=== PATIENT | male | born 1955 | race Hispanic/Latino ===

== ENCOUNTER 2024-12-05 14:13 | Emergency (ER) | payer MEDICARE ==
[~2024-12-05] VITALS: Ht 165.1 cm; Wt 77.1 kg
[~2024-12-05 14:13] MED LIST: ATOR10TA69 PO; CIPR-279 PO; FENO160T16 PO; FURO20TA4 PO; INS7030 SQ
[2024-12-05 14:14] VITALS: BP 157/73; PULSE 65; RESP 16; TEMP 97.8
[2024-12-05 14:57] LABS: IMMATURE GRANULOCYTE ABSOLUTE 0.01 K/uL (0-1); NUCLEATED RED BLOOD CELLS 0.0 % (0.0-0.19); PLATELET COUNT (AUTO) 100 K/uL (130-400); RED BLOOD CELL COUNT(AUTO) 2.83 MIL/uL (4.50-6.20); RED CELL DISTRIBUTION WIDTH 14.2 % (11.0-15.5); WHITE BLOOD COUNT (AUTO) 4.6 K/uL (4.8-10.8)
--- NOTE | 2024-12-05 15:00 | NUR ---
PT TRANSPORTED TO IR VIA WHEELCHAIR FOR PARACENTESIS ACCOMPANIED BY SCOOBY TAHPA
[2024-12-05 15:11] LABS: CREATININE 1.3 mg/dL (0.5-1.3); GLOMERULAR FILTR. RATE CALC 59.0 mL/min (>90); GLUCOSE,RANDOM 194.0 mg/dL (70-105); INR 1.09 (0.85-1.15); SODIUM SERUM 140.0 mmol/L (136-145); UREA NITROGEN, BLOOD 36.0 mg/dL (7-18)
[2024-12-05 15:15] LABS: ASPARTATE AMINOTRANSFERASE 45.0 U/L (10-37); TOTAL PROTEIN, SERUM 5.6 g/dL (6.0-8.3)
--- NOTE | 2024-12-05 16:30 | NUR ---
U/S GD PARACENTESIS PROCEDURE PERFORMED BY DR Katiuska PHILLIPS. PUNCTURE SITE LLQ AND PATIENT TOLERATED PROCEDURE WELL. TOTAL REMOVED 9.1 LITERS OF CLOUDY YELLOW FLUID. END OF PROCEDURE AT 1615. CATHETER REMOVED AND DRESSING APPLIED. NO BLEEDING NOTED. REPORT GIVEN TO Carmen BAEZA RN AND PATIENT TRANSPORTED TO ED FAST TRACK. AAO X3 WITH NO C/O PAIN. ALBUMIN 25% 50 GRAMS IV GIVEN DURING PROCEDURE
[2024-12-05] MEDS: ALBUMIN HUMAN 25% 200 ML IV ONE (16:33)
--- NOTE | 2024-12-05 17:00 | NUR ---
PT RETURNED FROM IR, 9.1L REMOVED FROM ABDOMEN LLQ, 50G ALBUMIN ADM, V/S BP140/57;HR 60;SAT 98%
--- NOTE | 2024-12-05 17:02 | ERN ---
ED Note History of Present Illness Stated Complaint: PARACENTESIS Chief Complaint: Abdominal Pain Time Seen by MD: 14:18 Dictation: 68-year-old male presenting to the emergency department with diffuse abdominal distention from cirrhosis here for paracentesis has not had one for a few weeks no fever no chest pain however he does feel winded if he tries to exert himself Allergies: Coded Allergies: No Known Drug Allergies (Unverified Allergy, Unknown, 09/27/23) Home Meds Active Scripts Ciprofloxacin HCl (Cipro) 250 Mg Tablet, 1 TAB PO BID for 7 Days, #14 TAB 0 Refills Prov:REBECCA GARCIA MD 11/22/24 Reported Medications Hum Insulin NPH/Reg Insulin Hm (Humulin 70/30) 100 Unit/Ml (70-30) Inj, 20 UNIT SQ BID, ML 09/28/23 Fenofibrate (Fenofibrate) 160 Mg Tablet, 160 MG PO DAILY, TAB 09/28/23 Furosemide (Furosemide) 20 Mg Tablet, 20 MG PO DAILY, TAB 09/28/23 Atorvastatin Calcium (Atorvastatin Calcium) 10 Mg Tablet, 10 MG PO HS, TAB 09/28/23 Past Medical History Past Medical History: Hypertension, Other Additional Past Medical Hx: LIVER CIRHOSIS Surgical History: Other Surgical History Other: SHOULDER SX Review of System Dictation Constitutional: Negative for fever,chills, and weight loss Eyes: Negative for injury, pain,redness, and discharge ENT: Negative for injury,pain or swelling Cardiovascular: Negative for chest pain, palpitations, and edema Respiratory: Negative for shortness of breath, cough, and wheezing, Abdomen/GI: Per HPI : Negative for injury, bleeding and discharge MS/Extremity: Negative for injury and deformity Skin: Negative for rash, and discoloration Neuro: Per H Initial Vital Sign VS Vital Signs Date Time Temp Pulse Resp B/P (MAP) Pulse Ox O2 Delivery O2 Flow Rate FiO2 12/05/24 14:14 97.9 65 16 157/73 100 Room Air 0 Physical Exam Dictation General: awake, alert, appears chronically ill Head/Face: Normocephalic, atraumatic Eyes: PERRL, EOMI, vision at baseline ENT: oral cavity clear, TMs clear, no signs of infection Neck: Trachea midline, supple, no nuchal rigidity Cardiovascular: RRR, normal S1/S2, No MRGs, no JVD Respiratory: CTAB, no respiratory distress, No rales or wheezes Abdomen: Soft, non-tender diffuse distention, normal bowel sounds, no guarding or rebound. Skin: Warm, dry, normal turgor, no rash MS/Extremity: Pulses equal, no cyanosis, neurovascular intact, FROM Neuro: COAx4, GCS 15, strength 5/5, CN 2-12 intact, normal cerebellar exam, normal gait, Psych: Normal behavior, mood, and affect normal Results (Laboratory/Radiology) Laboratory/Radiology Laboratory Tests Test 12/05/24 14:50 White Blood Count 4.6 K/uL (4.8-10.8) L Red Blood Count 2.83 MIL/uL (4.50-6.20) L Hemoglobin 8.9 g/dL (14.0-18.0) L Hematocrit 26.2 % (42-54) L Mean Corpuscular Volume 92.6 fL (79-99) Mean Corpuscular Hemoglobin 31.4 pg (27.0-33.0) Mean Corpuscular Hemoglobin Concent 34.0 g/dL (32.0-36.0) Red Cell Distribution Width 14.2 % (11.0-15.5) Platelet Count 100 K/uL (130-400) L Mean Platelet Volume 9.8 fL (7.5-10.5) Immature Granulocyte % (Auto) 0.2 % (0-1) Neutrophils (%) (Auto) 60.5 % (40.0-77.0) Lymphocytes (%) (Auto) 25.7 % (21.0-51.0) Monocytes (%) (Auto) 6.5 % (3.0-13.0) Eosinophils (%) (Auto) 6.7 % (0.0-8.0) Basophils (%) (Auto) 0.4 % (0.0-5.0) Neutrophils # (Auto) 2.8 K/uL (1.8-7.7) Lymphocytes # (Auto) 1.2 K/uL (1.0-4.8) Monocytes # (Auto) 0.3 K/uL (0.1-1.0) Eosinophils # (Auto) 0.31 K/uL (0.00-0.70) Basophils # (Auto) 0.02 K/uL (0.00-0.20) Absolute Immature Granulocyte (auto 0.01 K/uL (0-1) Nucleated Red Blood Cells 0.0 % (0.0-0.19) Prothrombin Time 11.5 SEC (9.6-11.6) Prothromb Time International Ratio 1.09 (0.85-1.15) Activated Partial Thromboplast Time 31.8 SEC (26.3-35.5) Sodium Level 140 mmol/L (136-145) Potassium Level 4.6 mmol/L (3.5-5.1) Chloride Level 111 mmol/L (101-111) Carbon Dioxide Level 24 mmol/L (21-32) Blood Urea Nitrogen 36 mg/dL (7-18) H Creatinine 1.3 mg/dL (0.5-1.3) Glomerular Filtration Rate Calc 59 mL/min (>90) Random Glucose 194 mg/dL (70-105) H Total Calcium 8.0 mg/dL (8.5-10.1) L Total Bilirubin 0.9 mg/dL (0.2-1.0) Direct Bilirubin 0.3 mg/dL (0.0-0.3) Aspartate Amino Transf (AST/SGOT) 45 U/L (10-37) H Alanine Aminotransferase (ALT/SGPT) 35 U/L (12-78) Alkaline Phosphatase 256 U/L (50-136) H Troponin I High Sensitivity 12 ng/L (4-75) B-Type Natriuretic Peptide 344 pg/mL (0-100) H Total Protein 5.6 g/dL (6.0-8.3) L Albumin 2.2 g/dL (3.5-5.0) L Labs Reviewed?: Yes ED Course ED Course Orders Procedure Category Date Status Time B-Type Natriuretic LAB 12/05/24 Complete Peptide 14:25 12 Lead Ekg Tracing- EKG 12/05/24 Logged Technical 14:25 Basic Metabolic Panel LAB 12/05/24 Complete 14:25 Cbc With Differential LAB 12/05/24 Complete 14:25 Hepatic Function Panel LAB 12/05/24 Complete 14:25 Pt And Ptt LAB 12/05/24 Complete 14:25 Troponin I High LAB 12/05/24 Complete Sensitivity 14:25 Us Abdominal US 12/05/24 Taken Paracentesis Ir 15:00 Albumin Human 25% PHA 12/05/24 Complete (Albutein) 15:55 Current Medications Medications (Trade) Dose Ordered Sig/Dylan Route PRN Reason Start Time Stop Time Status Last Admin Dose Admin Albumin Human 200 ml @ As Directed STK-MED ONCE IV 12/05/24 15:55 12/05/24 15:55 DC 12/05/24 16:33 Vital Signs Date Time Temp Pulse Resp B/P (MAP) Pulse Ox O2 Delivery O2 Flow Rate FiO2 12/05/24 14:14 97.9 65 16 157/73 100 Room Air 0 Medical Decision Making MDM MDM: Differential diagnosis: Rationale: Tests considered and ordered secondary to shared decision making include: Previous outside records reviewed: Old ER visits. Risk of complication and/or morbidity or mortality of patient management: None Medications-Per medication reconciliation Need for hospitalization: Patient does not meet criteria for hospitalization. Need for emergency major/minor surgery: No There are no social concerns with this patient. Prescription drug management Prescriptions will include symptomatic care Patient's prior external medical records from other ER visits were reviewed by me as indicated. Prior testing and results from previous visits were reviewed. Prior tests were taken into account with medical decision making and resource utilization, independent historian/historians were used to obtain complete medical history. I independently interpreted the test that were performed, results were reviewed by me and considered findings on radiology if ordered. Medical management and examination interpretation discussions were had by me wi th other qualified healthcare professionals as indicated for the patient's care. 68-year-old male presenting to the emergency department for abdominal ascites, stable vital signs, patient was taken to IR for paracentesis albumin was given returned back to the emergency department vital signs stable no acute distress stable for discharge. DX & DISP Disposition: Discharge Departure Impression: Primary Impression: Status post abdominal paracentesis Additional Impression: Abdominal ascites Condition: Stable Referrals: EDISON ENGLISH MD (PCP) DALIA SWARTZ MD Dec 05, 2024 17:02
--- NOTE | 2024-12-06 06:45 | EKG ---
[facility] Test Date: 2024-12-05 Test Time: 15:06:37 Pat Name: RUBIN DAMON Department: [facility] Room: Gender: M Cnc Cutting Operator: gliberto : 1955 Requested By: DALIA SWARTZ Order Number: [id number] Reading MD: Joye Wang Measurements Intervals [place] Rate: 68 P: 0 IN: 134 QRS: 59 QRSD: 90 T: -22 QT: 399 QTc: 423 Interpretive Statements Sinus rhythm Lateral infarct, age indeterminate Compared to ECG 09/28/2023 10:07:26 Sinus bradycardia no longer present Myocardial infarct finding still present Electronically Signed On 12-06-2024 09:53:54 CDT by Joey Wang Please click the below link to view image of tracing.
--- NOTE | 2024-12-23 16:19 | HMCIMG ---
US ABDOMINAL PARACENTESIS IR REASON: ASCITES TECHNIQUE: Paracentesis was performed with ultrasound guidance. The puncture site was selected in the Left lower quadrant and overlying skin prepped and draped in a sterile fashion. 1% Xylocaine infiltration was performed. Catheter was placed in the fluid using trocar technique. 9.1 L were removed. Fluid sample was submitted for laboratory evaluation. The patient showed no evidence of complication during the procedure. Patient tolerated procedure well IMPRESSION: 1. Ultrasound-guided paracentesis.
== END 2024-12-05 17:24 | disposition home or self-care (01) ==
LOC: EDH 14:13
DX: R18.8 Other ascites (principal); I10 Essential (primary) hypertension; I21.9 Acute myocardial infarction, unspecified; Z79.899 Other long term (current) drug therapy
CPT/HCPCS: 99285; 80076; 84484; 80048; 83880; 85025; 85610; 85730; 36415; 49083; 96365; 93005; P9046; C1729

== ENCOUNTER 2024-12-16 12:22 | Emergency (ER) | payer MEDICARE ==
[~2024-12-16] VITALS: Ht 167.6 cm; Wt 81.6 kg
--- NOTE | 2024-12-16 12:48 | EKG ---
[facility] Test Date: 2024-12-16 Test Time: 12:44:11 Pat Name: RUBIN DAMON Department: [facility] Room: Gender: M Value Analyst: [id number] : 1955 Requested By: DALIA SWARTZ Order Number: [id number] Reading MD: Yuan Suazo Measurements Intervals [place] Rate: 62 P: -3 GA: 185 QRS: 66 QRSD: 88 T: -1 QT: 420 QTc: 426 Interpretive Statements Sinus rhythm Compared to ECG 12/05/2024 15:06:37 Myocardial infarct finding no longer present Electronically Signed On 12-18-2024 21:37:45 CDT by Yuan Suazo Please click the below link to view image of tracing.
[2024-12-16 12:56] VITALS: BP 157/69; PULSE 62; RESP 13; TEMP 97.7; O2SAT 100
[2024-12-16 13:05] LABS: IMMATURE GRANULOCYTE ABSOLUTE 0.01 K/uL (0-1); NUCLEATED RED BLOOD CELLS 0.0 % (0.0-0.19); PLATELET COUNT (AUTO) 113 K/uL (130-400); RED BLOOD CELL COUNT(AUTO) 2.82 MIL/uL (4.50-6.20); RED CELL DISTRIBUTION WIDTH 14.6 % (11.0-15.5); WHITE BLOOD COUNT (AUTO) 3.8 K/uL (4.8-10.8)
--- NOTE | 2024-12-16 13:08 | HMCIMG ---
CHEST 1VW REASON: sob COMPARISON: Prior study from 10/10/2024 is available. FINDINGS: Single view of the chest was obtained. Lungs are clear. Heart size is normal. There is no pulmonary vascular congestion. Mediastinum and bony thorax appear unremarkable. There is right shoulder hemiarthroplasty with the humeral heads sublux cephalad. This was seen before and appears to be unchanged. There is osteopenia of the osseous structure. IMPRESSION: 1. No acute cardiopulmonary process 2. 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 This is unchanged from prior study.
[2024-12-16 13:11] LABS: CREATININE 1.2 mg/dL (0.5-1.3); GLOMERULAR FILTR. RATE CALC 65.0 mL/min (>90); GLUCOSE,RANDOM 159.0 mg/dL (70-105); SODIUM SERUM 141.0 mmol/L (136-145); UREA NITROGEN, BLOOD 30.0 mg/dL (7-18)
[2024-12-16 13:15] LABS: ASPARTATE AMINOTRANSFERASE 54.0 U/L (10-37); TOTAL PROTEIN, SERUM 5.3 g/dL (6.0-8.3)
[2024-12-16 13:19] LABS: INR 1.08 (0.85-1.15)
--- NOTE | 2024-12-16 13:35 | ERN ---
ED Note History of Present Illness Stated Complaint: HERE FOR PARACENTESIS Chief Complaint: Abdominal Pain Time Seen by MD: 12:26 Dictation: 68-year-old male presenting to the emergency department with worsening abdominal ascites gets paracentesis for therapeutic relief reports abdomen has been swelling more currently not having any fever abdominal pain or shortness of breath Allergies: Coded Allergies: No Known Drug Allergies (Unverified Allergy, Unknown, 09/27/23) Home Meds Active Scripts Ciprofloxacin HCl (Cipro) 250 Mg Tablet, 1 TAB PO BID for 7 Days, #14 TAB 0 Refills Prov:REBECCA GARCIA MD 11/22/24 Reported Medications Hum Insulin NPH/Reg Insulin Hm (Humulin 70/30) 100 Unit/Ml (70-30) Inj, 20 UNIT SQ BID, ML 09/28/23 Fenofibrate (Fenofibrate) 160 Mg Tablet, 160 MG PO DAILY, TAB 09/28/23 Furosemide (Furosemide) 20 Mg Tablet, 20 MG PO DAILY, TAB 09/28/23 Atorvastatin Calcium (Atorvastatin Calcium) 10 Mg Tablet, 10 MG PO HS, TAB 09/28/23 Past Medical History Past Medical History: Hypertension, Liver Disease, Other Additional Past Medical Hx: LIVER CIRHOSIS Surgical History: Other Surgical History Other: SHOULDER SX Review of System Dictation Constitutional: Negative for fever,chills, and weight loss Eyes: Negative for injury, pain,redness, and discharge ENT: Negative for injury,pain or swelling Cardiovascular: Negative for chest pain, palpitations, and edema Respiratory: Negative for shortness of breath, cough, and wheezing, Abdomen/GI: Per HPI : Negative for injury, bleeding and discharge MS/Extremity: Negative for injury and deformity Skin: Negative for rash, and discoloration Neuro: Negative for headache, weakness, numbness, tingling, and seizure Psych: Negative for suicide ideation, homicidal ideation, and hallucinations Initial Vital Sign VS Vital Signs Date Time Temp Pulse Resp B/P (MAP) Pulse Ox O2 Delivery O2 Flow Rate FiO2 12/16/24 12:23 97.9 71 16 142/65 100 Room Air 0 12/16/24 12:56 21 Physical Exam Dictation General: awake, alert, NAD Head/Face: Normocephalic, atraumatic Eyes: PERRL, EOMI, vision at baseline ENT: oral cavity clear, TMs clear, no signs of infection Neck: Trachea midline, supple, no nuchal rigidity Cardiovascular: RRR, normal S1/S2, No MRGs, no JVD Respiratory: CTAB, no respiratory distress, No rales or wheezes Abdomen: Soft, non-tender, moderately distended normal bowel sounds, no guarding or rebound. Skin: Warm, dry, normal turgor, no rash MS/Extremity: Pulses equal, no cyanosis, neurovascular intact, FROM Neuro: COAx4, GCS 15, strength 5/5, CN 2-12 intact, normal cerebellar exam, normal gait, Psych: Normal behavior, mood, and affect normal Results (Laboratory/Radiology) Laboratory/Radiology Laboratory Tests Test 12/16/24 12:43 White Blood Count 3.8 K/uL (4.8-10.8) L Red Blood Count 2.82 MIL/uL (4.50-6.20) L Hemoglobin 9.0 g/dL (14.0-18.0) L Hematocrit 26.7 % (42-54) L Mean Corpuscular Volume 94.7 fL (79-99) Mean Corpuscular Hemoglobin 31.9 pg (27.0-33.0) Mean Corpuscular Hemoglobin Concent 33.7 g/dL (32.0-36.0) Red Cell Distribution Width 14.6 % (11.0-15.5) Platelet Count 113 K/uL (130-400) L Mean Platelet Volume 10.1 fL (7.5-10.5) Immature Granulocyte % (Auto) 0.3 % (0-1) Neutrophils (%) (Auto) 57.9 % (40.0-77.0) Lymphocytes (%) (Auto) 26.5 % (21.0-51.0) Monocytes (%) (Auto) 6.6 % (3.0-13.0) Eosinophils (%) (Auto) 8.2 % (0.0-8.0) H Basophils (%) (Auto) 0.5 % (0.0-5.0) Neutrophils # (Auto) 2.2 K/uL (1.8-7.7) Lymphocytes # (Auto) 1.0 K/uL (1.0-4.8) Monocytes # (Auto) 0.3 K/uL (0.1-1.0) Eosinophils # (Auto) 0.31 K/uL (0.00-0.70) Basophils # (Auto) 0.02 K/uL (0.00-0.20) Absolute Immature Granulocyte (auto 0.01 K/uL (0-1) Nucleated Red Blood Cells 0.0 % (0.0-0.19) Prothrombin Time 11.4 SEC (9.6-11.6) Prothromb Time International Ratio 1.08 (0.85-1.15) Activated Partial Thromboplast Time 30.6 SEC (26.3-35.5) Sodium Level 141 mmol/L (136-145) Potassium Level 4.6 mmol/L (3.5-5.1) Chloride Level 110 mmol/L (101-111) Carbon Dioxide Level 25 mmol/L (21-32) Blood Urea Nitrogen 30 mg/dL (7-18) H Creatinine 1.2 mg/dL (0.5-1.3) Glomerular Filtration Rate Calc 65 mL/min (>90) Random Glucose 159 mg/dL (70-105) H Total Calcium 8.2 mg/dL (8.5-10.1) L Total Bilirubin 1.3 mg/dL (0.2-1.0) H Direct Bilirubin 0.5 mg/dL (0.0-0.3) H Aspartate Amino Transf (AST/SGOT) 54 U/L (10-37) H Alanine Aminotransferase (ALT/SGPT) 41 U/L (12-78) Alkaline Phosphatase 254 U/L (50-136) H Troponin I High Sensitivity 13 ng/L (4-75) Total Protein 5.3 g/dL (6.0-8.3) L Albumin 2.1 g/dL (3.5-5.0) L Lipase 30 U/L (16-77) Labs Reviewed?: Yes EKG Comment: Heart rate 62 normal sinus rhythm normal intervals no STEMI ED Course ED Course Orders Procedure Category Date Status Time 12 Lead Ekg Tracing- EKG 12/16/24 Complete Technical 12:31 Basic Metabolic Panel LAB 12/16/24 Complete 12:31 Cbc With Differential LAB 12/16/24 Complete 12:31 Hepatic Function Panel LAB 12/16/24 Complete 12:31 Lipase LAB 12/16/24 Complete 12:31 Pt And Ptt LAB 12/16/24 Complete 12:31 Troponin I High LAB 12/16/24 Complete Sensitivity 12:31 Chest 1vw RAD 12/16/24 Resulted 12:31 Vital Signs Date Time Temp Pulse Resp B/P (MAP) Pulse Ox O2 Delivery O2 Flow Rate FiO2 12/16/24 12:56 97.7 62 13 157/69 100 Room Air* 0 21 12/16/24 12:23 97.9 71 16 142/65 100 Room Air 0 Medical Decision Making MDM MDM: Differential diagnosis: Rationale: Tests considered and ordered secondary to shared decision making include: Previous outside records reviewed: Old ER visits. Risk of complication and/or morbidity or mortality of patient management: None Medications-Per medication reconciliation Need for hospitalization: Patient does not meet criteria for hospitalization. Need for emergency major/minor surgery: No There are no social concerns with this patient. Prescription drug management Prescriptions will include symptomatic care Patient's prior external medical records from other ER visits were reviewed by me as indicated. Prior testing and results from previous visits were reviewed. Prior tests were taken into account with medical decision making and resource utilization, independent historian/historians were used to obtain complete medical history. I independently interpreted the test that were performed, results were reviewed by me and considered findings on radiology if ordered. Medical management and examination interpretation discussions were had by me with other qualified healthcare professionals as indicated for the patient's care. 68-year-old male with abdominal with ascites stable exam vital signs stable workup stable no signs of spontaneous bacterial peritonitis, patient is oxygenating well no interventional radiology services are available today patient is stable for discharge. And advised to follow up as needed. DX & DISP Disposition: Discharge Departure Impression: Primary Impression: Abdominal ascites Condition: Stable Referrals: EDISON ENGLISH MD (PCP) DALIA SWARTZ MD Dec 16, 2024 13:35
--- NOTE | 2024-12-16 15:06 | NUR ---
DC PATIENT WAS DC'D BY DR SWARTZ, I EXPLAINED TO PATIENT TO FOLLOW UP WITH PCP, PROVIDED INFO BASED ON DIAGNOSIS, AND ANSWERED ANY FOLLOW UP QUESTIONS, I ALSO MADE SURE FOR PATIENT TO UNDERSTAND [facility] WHEELCHAIRED PATIENT OUT OF ED, NO COMPLICATIONS
== END 2024-12-16 15:00 | disposition home or self-care (01) ==
LOC: EDH 12:22
DX: R18.8 Other ascites (principal); I10 Essential (primary) hypertension; Z79.01 Long term (current) use of anticoagulants; Z79.899 Other long term (current) drug therapy; Z98.890 Other specified postprocedural states
CPT/HCPCS: 36415; 71045; 80048; 80076; 83690; 84484; 85025; 85610; 85730; 93005; 99285

== ENCOUNTER 2024-12-20 08:56 | Emergency (ER) | payer MEDICARE ==
[~2024-12-20] VITALS: Ht 157.5 cm; Wt 81.8 kg
--- NOTE | 2024-12-20 09:07 | ERN ---
General Chief Complaint: Other Problems Stated Complaint: ASCITES Time Seen by MD: 08:58 History of Present Illness Initial Comments 69M presents for paracentesis. Patient has hx of cirrhosis w/ ascites, requiring paracentesis. He came yesterday late in the afternoon and IR had left. He returns this morning for the procedure. No fevers, severe pain, or other concerning symptom. Allergies: Coded Allergies: No Known Drug Allergies (Unverified Allergy, Unknown, 09/27/23) Home Meds Active Scripts Ciprofloxacin HCl (Cipro) 250 Mg Tablet, 1 TAB PO BID for 7 Days, #14 TAB 0 Refills Prov:REBECCA GARCIA MD 11/22/24 Reported Medications Hum Insulin NPH/Reg Insulin Hm (Humulin 70/30) 100 Unit/Ml (70-30) Inj, 20 UNIT SQ BID, ML 09/28/23 Fenofibrate (Fenofibrate) 160 Mg Tablet, 160 MG PO DAILY, TAB 09/28/23 Furosemide (Furosemide) 20 Mg Tablet, 20 MG PO DAILY, TAB 09/28/23 Atorvastatin Calcium (Atorvastatin Calcium) 10 Mg Tablet, 10 MG PO HS, TAB 09/28/23 Past Medical History Past Medical History: Hypertension, Liver Disease, Other Medical History Other: LIVER CIRHOSIS Past Surgical History: Other Surgical History Other: SHOULDER SX ROS Dictation CONSTITUTIONAL: No chills, no fever, no weakness, no diaphoresis, no malaise. HEAD/FACE: No signs of trauma. EENT: No eye pain, no blurred vision, no tearing, no double vision, no ear pain, no ear discharge, no nose pain, no nasal congestion, no throat pain, no throat swelling, no mouth pain. RESPIRATORY: No cough, no orthopnea, no SOB, no stridor, no wheezing. CARDIOVASCULAR: No chest pain, no edema, no palpitations, no syncope. GASTROINTESTINAL/ABDOMINAL: Abdominal pain and distention GENITOURINARY: No abnormal discharge, no dysuria, no frequent urination, no hematuria. No complaints of pain in the genitals. MUSCULOSKELETAL: No back pain, no gout, no joint pain, no joint swelling, no muscle pain, no muscle stiffness, no neck pain. INTEGUMENTARY: No change in color, no change in hair/nails, no dryness, no lesion, no lumps, no rash. NEUROLOGICAL/PSYCH: No anxiety, not depressed, no emotional problem, no headache, no numbness, no pre-existing deficit, no history of seizures, no tremors, no weakness. HEMATOLOGIC/LYMPHATIC: Not anemic, no history of blood clots, no apparent bleeding, no bruising, glands not swollen. All Systems Negative, Except as Noted. Physical Exam Physical Exam Dictation VITAL SIGNS: Reviewed. GENERAL APPEARANCE: Alert, oriented x3, no acute distress HEAD AND FACE: Non-traumatic. EYES: PERRL, pink conjunctivas, eyelid no trauma, anterior chamber clear. EARS: Pinnas intact and no signs of trauma or erythema. Ear canals clear and no discharge. TMs no erythema. NOSE: No discharge, no bleeding. OROPHARYNX: Mouth normal, teeth no caries, tongue pink. Pharynx clear, no erythema. Tonsils no exudates, no abscesses noted. Mucous membrane moist. NECK: Supple, non-tender, no thyromegaly, no masses, no JVD, no bruits. BREAST: Deferred. CHEST: No tenderness, no crepitus, no paradoxical movement, no retractions. LUNGS: Clear, well-ventilated, symmetric, no rales, no wheezing, no rhonchi, no stridor, good breath sounds bilaterally. HEART: Regular rate, regular rhythm, no murmur, no gallops. VASCULAR: No peripheral edema. ABDOMEN: Abdominal distention RECTAL: Deferred. GENITAL: Deferred. NEUROLOGICAL: Normal speech, gross motor function intact, gross sensory function intact. MUSCULOSKELETAL: Neck nontender, full range of motion, back nontender, full range of motion. EXTREMITIES: Nontender, full range of motion. SKIN: Color pink, dry, no turgor, no rash, no lacerations, no abrasions, no contusions. LYMPHATICS: Deferred. MDM CC: abdominal distension Historian: patient Comorbidities: Ascites due to liver cirrhosis Limitations: None Differential diagnosis: Ascites, SBP, other Clinically patient has a distended abdomen. No respiratory distress. Very low suspicion for SBP since he has no systemic symptoms or pain. I consulted IR who performed a paracentesis. Patient returned to the ER. He has stable vital signs and he feels much better. We will DC. ED Course Orders Procedure Category Date Status Time Albumin Human 25% PHA 12/20/24 Complete (Albutein) 09:18 Us Abdominal US 12/20/24 Resulted Paracentesis Ir 10:00 Current Medications Medications (Trade) Dose Ordered Sig/Dylan Route PRN Reason Start Time Stop Time Status Last Admin Dose Admin Albumin Human 200 ml @ As Directed STK-MED ONCE IV 12/20/24 09:18 12/20/24 09:18 DC 12/20/24 09:54 Vital Signs Date Time Temp Pulse Resp B/P (MAP) Pulse Ox O2 Delivery O2 Flow Rate FiO2 12/20/24 12:58 98.8 77 14 137/58 98 Room Air* 0 21 12/20/24 12:12 98.2 70 12 136/64 98 Room Air* 0 21 12/20/24 11:27 97.5 81 18 143/63 100 Room Air* 0 21 12/20/24 08:57 98.1 75 20 158/75 98 Room Air DX & DISP Disposition: Discharge Departure Impression: Primary Impression: Abdominal ascites Additional Impressions: Liver cirrhosis, Status post abdominal paracentesis Condition: Stable Additional Instructions: You had a paracentesis performed today. Please follow up with your primary doctor. Paracentesis can be coordinated as an outpatient. If you are unable to coordinate an outpatient paracentesis, please return to the emergency department. Please return to the emergency department if you have any concerning symptoms. Referrals: EDISON ENGLISH MD (PCP) BETO VERGARA DO Dec 20, 2024 09:07
--- NOTE | 2024-12-20 09:17 | NUR ---
PT TAKEN TO IR FOR PARACENTESIS AT THIS TIME. ACCOMPANIED BY NURSE ELIER
[2024-12-20] MEDS: ALBUMIN HUMAN 25% 200 ML IV ONE (09:54)
--- NOTE | 2024-12-20 10:50 | NUR ---
ULTRASOUND GUIDED PARACENTESIS PROCEDURE PERFORMED BY DR. JUNIE PHILLIPS. PUNCTURE SITE LLQ AND PATIENT TOLERATED PROCEDURE WELL. TOTAL REMOVED 12.3 LITERS OF CLOUDY, YELLOW ASCITES FLUID. ALBUMIN 25% 50 GRAMS IV GIVEN DURING PROCEDURE. END OF PROCEDURE AT 1040. CATHETER REMOVED AND DRESSING APPLIED- NO BLEEDING NOTED. REPORT GIVEN TO MARLEE PURCELL RN AND PATIENT TRANSPORTED BACK TO ED-20 VIA STRETCHER. AAO X3 WITH NO C/O PAIN.
--- NOTE | 2024-12-20 11:40 | NUR ---
1120 PT BACK FROM RAD DEPT/ PT AAOX4 NO C/O PAIN VITALS WNL DRESSING TO LLQ DRY AND INTACT. PT HAD 12.3 LITERS REMOVED. LOCAL ANESTHETIC/ ALBULMIN GIVEN IN RAD. DEPT REPORT GIVEN BY BERRY ALMODOVAR.
[2024-12-20 12:58] VITALS: BP 137/58; PULSE 77; RESP 14; TEMP 98.8; O2SAT 98
--- NOTE | 2024-12-20 13:02 | NUR ---
PT AAOX4 STABLE NO DISTRESS VITALS WNL NO C/O PAIN NOW. PT LLQ DRESSING D/I , IV REMOVED CATHETER INTACT, PT DRESSED HIMSELF, PT GIVEN INSTRUCTIONS FOR HOME, PT STATES HE WILL DRIVE HIMSELF HOME.
--- NOTE | 2024-12-20 15:51 | HMCIMG ---
US ABDOMINAL PARACENTESIS IR REASON: ASCITES TECHNIQUE: Paracentesis was performed with ultrasound guidance. The puncture site was selected in the left lobe: and overlying skin prepped and draped in a sterile fashion. 1% Xylocaine infiltration was performed. Catheter was placed in the fluid using trocar technique. 12.3 L were removed. Fluid sample was submitted for laboratory evaluation. The patient showed no evidence of complication during the procedure. Patient tolerated procedure well. IMPRESSION: 1. Ultrasound-guided paracentesis.
== END 2024-12-20 13:07 | disposition home or self-care (01) ==
LOC: EDH 08:56
DX: R18.8 Other ascites (principal); I10 Essential (primary) hypertension; Z79.899 Other long term (current) drug therapy
CPT/HCPCS: 49083; 99285; 96365; P9046; C1729

== ENCOUNTER 2025-01-09 11:25 | Emergency (ER) | payer MEDICARE ==
[~2025-01-09] VITALS: Ht 165.1 cm; Wt 81.8 kg
[2025-01-09 12:01] LABS: IMMATURE GRANULOCYTE ABSOLUTE 0.01 K/uL (0-1); NUCLEATED RED BLOOD CELLS 0.0 % (0.0-0.19); PLATELET COUNT (AUTO) 102 K/uL (130-400); RED BLOOD CELL COUNT(AUTO) 2.60 MIL/uL (4.50-6.20); RED CELL DISTRIBUTION WIDTH 14.2 % (11.0-15.5); WHITE BLOOD COUNT (AUTO) 4.6 K/uL (4.8-10.8)
[2025-01-09 12:14] LABS: CREATININE 1.2 mg/dL (0.5-1.3); GLOMERULAR FILTR. RATE CALC 65.0 mL/min (>90); GLUCOSE,RANDOM 86.0 mg/dL (70-105); SODIUM SERUM 142.0 mmol/L (136-145); UREA NITROGEN, BLOOD 36.0 mg/dL (7-18)
[2025-01-09 12:18] LABS: ASPARTATE AMINOTRANSFERASE 43.0 U/L (10-37); TOTAL PROTEIN, SERUM 5.5 g/dL (6.0-8.3)
[2025-01-09 12:52] LABS: INR 1.08 (0.85-1.15)
--- NOTE | 2025-01-09 13:58 | ERN ---
General Chief Complaint: Abdominal Pain Stated Complaint: PARACENTESIS Time Seen by MD: 11:27 Time Seen by Midlevel: 11:27 Source: patient History of Present Illness Initial Comments 69-year-old male presents to the emergency department due to abdominal pain and distention. The patient reports he needs a paracentesis, last one done 20 days ago. Denies any nausea, vomiting, shortness of breath, chest pain or further associated symptoms. PMHx cirrhosis, HTN Allergies: Coded Allergies: No Known Drug Allergies (Unverified Allergy, Unknown, 09/27/23) Home Meds Active Scripts Ciprofloxacin HCl (Cipro) 250 Mg Tablet, 1 TAB PO BID for 7 Days, #14 TAB 0 Refills Prov:REBECCA GARCIA MD 11/22/24 Reported Medications Hum Insulin NPH/Reg Insulin Hm (Humulin 70/30) 100 Unit/Ml (70-30) Inj, 20 UNIT SQ BID, ML 09/28/23 Fenofibrate (Fenofibrate) 160 Mg Tablet, 160 MG PO DAILY, TAB 09/28/23 Furosemide (Furosemide) 20 Mg Tablet, 20 MG PO DAILY, TAB 09/28/23 Atorvastatin Calcium (Atorvastatin Calcium) 10 Mg Tablet, 10 MG PO HS, TAB 09/28/23 Past Medical History Past Medical History: Hypertension, Liver Disease, Other Medical History Other: LIVER CIRHOSIS Past Surgical History: Other Surgical History Other: SHOULDER SX ROS Dictation Constitutional: Negative for fever,chills, and weight loss Eyes: Negative for injury, pain,redness, and discharge ENT: Negative for injury,pain or swelling Cardiovascular: Negative for chest pain, palpitations, and edema Respiratory: Negative for shortness of breath, cough, and wheezing, Abdomen/GI: Positive for abdominal pain, distention Negative for nausea, vomiting, diarrhea, and constipation Back: Negative for injury and pain : Negative for painful urination, bleeding or discharge MS/Extremity: Negative for injury and deformity Skin: Negative for rash, and discoloration Neuro: Negative for headache, weakness, numbness, tingling, and seizure Psych: Negative for suicide ideation, homicidal ideation, and hallucinations Physical Exam Physical Exam Dictation General: awake, alert, no acute distress Head/Face: Normocephalic, atraumatic Eyes: PERRL, EOMI, normal conjunctiva ENT: oral cavity clear, oral mucosa moist Neck: Supple, normal range of motion Cardiovascular: RRR, normal S1/S2 Respiratory: CTAB, no respiratory distress, no rales or wheezes Abdomen: Abdominal distention, no guarding or rebound. Skin: Warm, dry, normal turgor, no rash MS/Extremity: Pulses equal, no cyanosis, neurovascular intact, FROM Neuro: COAx4, GCS 15, strength 5/5, CN 2-12 intact, normal cerebellar exam, normal gait Psych: Normal behavior, mood, and affect normal Results Laboratory and Microbiology Lab and Micro Result Laboratory Tests Test 01/09/25 11:53 White Blood Count 4.6 K/uL (4.8-10.8) L Red Blood Count 2.60 MIL/uL (4.50-6.20) L Hemoglobin 8.4 g/dL (14.0-18.0) L Hematocrit 24.9 % (42-54) L Mean Corpuscular Volume 95.8 fL (79-99) Mean Corpuscular Hemoglobin 32.3 pg (27.0-33.0) Mean Corpuscular Hemoglobin Concent 33.7 g/dL (32.0-36.0) Red Cell Distribution Width 14.2 % (11.0-15.5) Platelet Count 102 K/uL (130-400) L Mean Platelet Volume 9.5 fL (7.5-10.5) Immature Granulocyte % (Auto) 0.2 % (0-1) Neutrophils (%) (Auto) 55.6 % (40.0-77.0) Lymphocytes (%) (Auto) 29.8 % (21.0-51.0) Monocytes (%) (Auto) 7.2 % (3.0-13.0) Eosinophils (%) (Auto) 6.8 % (0.0-8.0) Basophils (%) (Auto) 0.4 % (0.0-5.0) Neutrophils # (Auto) 2.6 K/uL (1.8-7.7) Lymphocytes # (Auto) 1.4 K/uL (1.0-4.8) Monocytes # (Auto) 0.3 K/uL (0.1-1.0) Eosinophils # (Auto) 0.31 K/uL (0.00-0.70) Basophils # (Auto) 0.02 K/uL (0.00-0.20) Absolute Immature Granulocyte (auto 0.01 K/uL (0-1) Nucleated Red Blood Cells 0.0 % (0.0-0.19) Prothrombin Time 11.4 SEC (9.6-11.6) Prothromb Time International Ratio 1.08 (0.85-1.15) Activated Partial Thromboplast Time 31.3 SEC (26.3-35.5) Sodium Level 142 mmol/L (136-145) Potassium Level 4.7 mmol/L (3.5-5.1) Chloride Level 113 mmol/L (101-111) H Carbon Dioxide Level 21 mmol/L (21-32) Blood Urea Nitrogen 36 mg/dL (7-18) H Creatinine 1.2 mg/dL (0.5-1.3) Glomerular Filtration Rate Calc 65 mL/min (>90) Random Glucose 86 mg/dL (70-105) Total Calcium 7.8 mg/dL (8.5-10.1) L Total Bilirubin 1.1 mg/dL (0.2-1.0) H Direct Bilirubin 0.4 mg/dL (0.0-0.3) H Aspartate Amino Transf (AST/SGOT) 43 U/L (10-37) H Alanine Aminotransferase (ALT/SGPT) 28 U/L (12-78) Alkaline Phosphatase 229 U/L (50-136) H Total Protein 5.5 g/dL (6.0-8.3) L Albumin 2.3 g/dL (3.5-5.0) L Lipase 34 U/L (16-77) Labs Reviewed?: Yes MDM MDM: Differential diagnosis: Cirrhosis, abdominal ascites, bacterial peritonitis Rationale: 69-year-old male presents to the emergency department due to abdominal pain and distention. The patient reports he needs a paracentesis, last one done 20 days ago. Denies any nausea, vomiting, shortness of breath, chest pain or further associated symptoms. PMHx cirrhosis, HTN Labs obtained indicate leukopenia 4.6, anemia with hemoglobin of 8.4 and hematocrit of 24.9. PT and PTT within normal limits. LFTs obtained elevated consistent with cirrhosis. Patient taking by IR for paracentesis, albumin administered. Patient remained stable post paracentesis in the ED, symptoms resolved. Advised to follow up with PCP. Return to the emergency department for any worsening symptoms. Patient verbalized understanding. Patient stable for discharge. There are no social concerns with this patient. I independently interpreted the test that were performed, results were reviewed by me and considered findings on radiology if ordered. Medical management and examination interpretation discussions were had by me with other qualified healthcare professionals as indicated for the patient's care. ED Course Orders Procedure Category Date Status Time Cbc With Differential LAB 01/09/25 Complete 11:31 Basic Metabolic Panel LAB 01/09/25 Complete 11:31 Urinalysis LAB 01/09/25 Logged W/Microscopic 11:31 Hepatic Function Panel LAB 01/09/25 Complete 11:31 Lipase LAB 01/09/25 Complete 11:31 Pt And Ptt LAB 01/09/25 Complete 12:30 Us Abdominal US 01/09/25 Taken Paracentesis Ir 12:30 Obtain Consent For: CPOE 01/09/25 Transmitted 12:30 Albumin Human 25% PHA 01/09/25 Complete (Albutein) 13:36 Current Medications Medications (Trade) Dose Ordered Sig/Dylan Route PRN Reason Start Time Stop Time Status Last Admin Dose Admin Albumin Human 200 ml @ As Directed STK-MED ONCE IV 01/09/25 13:36 01/09/25 13:36 DC 01/09/25 14:48 Vital Signs Date Time Temp Pulse Resp B/P (MAP) Pulse Ox O2 Delivery O2 Flow Rate FiO2 01/09/25 12:30 97.5 59 16 162/65 100 Room Air* 0 21 01/09/25 11:27 97.5 59 16 162/65 100 Room Air 0 DX & DISP Disposition: Discharge Departure Impression: Primary Impression: Status post abdominal paracentesis Additional Impressions: Liver cirrhosis, Abdominal ascites Condition: Stable Additional Instructions: Discharge home. Rest. Follow up with primary care in 24 hours. Return to the ER for any acute changes or worsening symptoms. If any medications were prescribed take as directed. Okay to continue home medications unless otherwise discussed during your visit in the emergency room today. Patient was also advised to follow-up with primary care physician in 1 to 2 days for continued monitoring. Referrals: EDISON ENGLISH MD (PCP) I performed the substantive portion of the visit. I have reviewed and personally made and approve the management plan that is documented in the notes by myself or the MARY. I acknowledge full responsibility for the patient's management plan. LADONNA RODRIGUEZ PAC Jan 09, 2025 13:58
[2025-01-09] MEDS: ALBUMIN HUMAN 25% 200 ML IV ONE (14:48)
--- NOTE | 2025-01-09 15:00 | NUR ---
U/S GD PARACENTESIS PROCEDURE PERFORMED BY DR Katiuska PHILLIPS. PUNCTURE SITE LLQ AND PATIENT TOLERATED PROCEDURE WELL. TOTAL REMOVED 12.5 LITERS OF CLOUDY YELLOW FLUID. END OF PROCEDURE AT 1440. CATHETER REMOVED AND DRESSING APPLIED. NO BLEEDING NOTED. REPORT GIVEN TO SCOOBY CALDERON AND PATIENT TRANSPORTED TO ED 3 VIA STRETCHER AT 1500. AAO X3 WITH NO C/O PAIN. ALBUMIN 25% 50 GRAMS IV GIVEN DURING PROCEDURE.
[2025-01-09 17:12] VITALS: BP 148/62; PULSE 60; RESP 16; TEMP 97.5; O2SAT 100
--- NOTE | 2025-01-12 13:18 | HMCIMG ---
US ABDOMINAL PARACENTESIS IR REASON: ASCITIES TECHNIQUE: Paracentesis was performed with ultrasound guidance. The puncture site was selected in the Left lower quadrant and overlying skin prepped and draped in a sterile fashion. 1% Xylocaine infiltration was performed. Catheter was placed in the fluid using trocar technique. 12.5 L were removed. Fluid sample was submitted for laboratory evaluation. The patient showed no evidence of complication during the procedure. Patient tolerated procedure well. IMPRESSION: 1. Ultrasound-guided paracentesis.
[2025-03-01] MEDS ORDERED: FURO40TA5 PO (11:49)
[2025-03-10] MEDS ORDERED: FOLI0.8T53 PO (08:21)
[2025-03-10] MEDS ORDERED: LACT20PA7 PO (08:21)
[2025-03-10] MEDS ORDERED: RIFA550T PO (08:21)
== END 2025-01-09 17:15 | disposition home or self-care (01) ==
LOC: EDH 11:25
DX: R18.8 Other ascites (principal); K74.60 Unspecified cirrhosis of liver; I10 Essential (primary) hypertension; Z79.899 Other long term (current) drug therapy
CPT/HCPCS: 99285; 80076; 80048; 83690; 85025; 85610; 85730; 36415; 49083; 96365; P9046; C1729

== ENCOUNTER 2025-01-24 11:37 | Emergency (ER) | payer MEDICARE ==
[~2025-01-24] VITALS: Ht 165.1 cm; Wt 79.8 kg
[2025-01-24 12:33] LABS: IMMATURE GRANULOCYTE ABSOLUTE 0.01 K/uL (0-1); NUCLEATED RED BLOOD CELLS 0.0 % (0.0-0.19); PLATELET COUNT (AUTO) 134 K/uL (130-400); RED BLOOD CELL COUNT(AUTO) 2.99 MIL/uL (4.50-6.20); RED CELL DISTRIBUTION WIDTH 13.7 % (11.0-15.5); WHITE BLOOD COUNT (AUTO) 6.4 K/uL (4.8-10.8)
[2025-01-24 12:40] LABS: CREATININE 1.3 mg/dL (0.5-1.3); GLOMERULAR FILTR. RATE CALC 59.0 mL/min (>90); GLUCOSE,RANDOM 89.0 mg/dL (70-105); SODIUM SERUM 142.0 mmol/L (136-145); UREA NITROGEN, BLOOD 36.0 mg/dL (7-18)
[2025-01-24 12:43] LABS: INR 1.06 (0.85-1.15)
--- NOTE | 2025-01-24 14:25 | HMCIMG ---
EXAM: CT Abdomen and Pelvis Without IV contrast CLINICAL HISTORY: ascites TECHNIQUE: Axial computed tomography images of the abdomen and pelvis without intravenous contrast. CONTRAST: No IV contrast. COMPARISON: Compared with the [facility] dated 10/07 FINDINGS: LUNG BASES: The lung bases appear clear. Right mild and left minimal pleural effusion. LIVER: Cirrhotic appearance with hypertrophy of the left lobe of the liver. GALLBLADDER AND BILE DUCTS: Possible cholelithiasis with pneumobilia. No biliary ductal dilatation is evident. PANCREAS: Unremarkable. SPLEEN: The spleen is enlarged in size, measuring 15 cm. ADRENAL GLANDS: Unremarkable. KIDNEYS, URETERS, AND BLADDER: The kidneys appear within normal limits. There is no hydronephrosis or hydroureter. No urinary calculi are seen. Diffuse urinary bladder wall thickening with maximum thickness of 7.7 mm. STOMACH AND BOWEL: Unremarkable appearance of the stomach and bowel. No evidence of bowel obstruction. No evidence suggesting enteritis or colitis. APPENDIX: No evidence of acute appendicitis on CT examination. PERITONEUM: Severe free fluid. No free air. LYMPH NODES: No lymphadenopathy is evident. REPRODUCTIVE: Prostate is enlarged in size measuring 3.7 x 4.7 x 5.8 cm (52 cc). VASCULATURE: No evidence of abdominal aortic aneurysm. Dilated collateral vessels in the medial aspect of the spleen and adjacent to the left adrenal gland. BONES: No aggressive appearing osseous lesion. No acute osseous pathology evident. Mild multilevel degenerative changes in the visualized spine. Diffuse abdominal and scrotal wall edema. IMPRESSION: 1. Severe ascites. 2. Cirrhosis with left lobe hypertrophy and splenomegaly measuring 15 cm. 3. Right mild and left minimal pleural effusion. 4. Diffuse urinary bladder wall thickening, could represent cystitis or muscular hypertrophy. 5. Dilated collateral vessels in the medial aspect of the spleen and adjacent to the left adrenal gland. 6. Enlarged prostate. /Bivalve
[2025-01-24] MEDS: ALBUMIN HUMAN 25% 200 ML IV ONE (16:37)
--- NOTE | 2025-01-24 16:49 | NUR ---
12 L REMOVED FROM LLQ, PT WAS GIVEN 200MLS OF ALBUMIN PER CRYSTAL RN.
--- NOTE | 2025-01-24 16:50 | NUR ---
ULTRASOUND GUIDED PARACENTESIS PROCEDURE PERFORMED BY DR. JUNIE PHILLIPS. PUNCTURE SITE LLQ AND PATIENT TOLERATED PROCEDURE WELL. TOTAL REMOVED 12.0 LITERS OF CLEAR, YELLOW ASCITES FLUID. ALBUMIN 25% ADMINISTERED ORDERED. END OF PROCEDURE AT 1635. CATHETER REMOVED AND DRESSING APPLIED. REPORT CALLED TO Jose ANN RN IN ED. PATIENT TRANSFERRED BACK TO ED IN STABLE CONDITION WITH NO C/O PAIN.
--- NOTE | 2025-01-24 17:13 | ERN ---
General Chief Complaint: Abdominal Pain Stated Complaint: ABD PAIN Time Seen by MD: 12:05 Time Seen by Midlevel: 12:05 Source: patient History of Present Illness Initial Comments Year old male with a past medical history of liver cirrhosis presents to the emergency department for evaluation of ascites. Patient reports monthly paracentesis and believes he may need a paracentesis performed today. He reports significant amount of abdominal distention. Denies any shortness of breath or any other symptoms at this time. Allergies: Coded Allergies: No Known Drug Allergies (Unverified Allergy, Unknown, 09/27/23) Home Meds Active Scripts Ciprofloxacin HCl (Cipro) 250 Mg Tablet, 1 TAB PO BID for 7 Days, #14 TAB 0 Refills Prov:REBECCA GARCIA MD 11/22/24 Reported Medications Hum Insulin NPH/Reg Insulin Hm (Humulin 70/30) 100 Unit/Ml (70-30) Inj, 20 UNIT SQ BID, ML 09/28/23 Fenofibrate (Fenofibrate) 160 Mg Tablet, 160 MG PO DAILY, TAB 09/28/23 Furosemide (Furosemide) 20 Mg Tablet, 20 MG PO DAILY, TAB 09/28/23 Atorvastatin Calcium (Atorvastatin Calcium) 10 Mg Tablet, 10 MG PO HS, TAB 09/28/23 Past Medical History Past Medical History: Hypertension, Liver Disease, Other Medical History Other: LIVER CIRHOSIS Past Surgical History: Other, None Surgical History Other: SHOULDER SX ROS Dictation CONSTITUTIONAL: Negative except for HPI HEAD/FACE: Negative except for HPI EENT: Negative except for HPI RESPIRATORY: Negative except for HPI GASTROINTESTINAL/ABDOMINAL: Negative except for HPI GENITOURINARY: Negative except for HPI MUSCULOSKELETAL: Negative except for HPI INTEGUMENTARY: Negative except for HPI NEUROLOGICAL/PSYCH: Negative except for HPI HEMATOLOGIC/LYMPHATIC: Negative except for HPI All Systems Negative, Except as noted above. 13 point review of systems assessed and all negative except for above. Physical Exam Physical Exam Dictation Vital Signs reviewed General Appearance: Alert, oriented x 3, no acute distress, well developed, nourished. Head and Face: non-traumatic. Eyes: PERRL, pink conjunctivas, eyelid no trauma, anterior chamber with arcus senilis. Ears: Pinnas intact and no signs of trauma or erythema ear canals clear and no discharge TM no erythema Nose: No discharge, no bleeding. Oropharynx: Mouth normal, tongue pink, pharynx clear,no erythema, tonsils no exudates, no abscesses noted, mucous membrane moist Neck: Supple, non-tender, no thyromegaly, no masses, no JVD, no bruits Breast:Deferred Chest:No tenderness, no crepitus, no paradoxical movement, no retractions Lungs:Clear, well-ventilated, symmetric, no rales, no wheezing, no rhonchi, no stridor, good breath sounds bilaterally Heart: Regular rate, regular rhythm, no murmur, no gallops Vascular: no peripheral edema, Abdomen: Soft, positive bowel sounds, moderate to severe ascites Rectal: Deferred Genital: Deferred Neurological: Normal speech, motor function intact, sensory function intact Musculoskeletal: Neck nontender, full range of motion, back nontender, full range of motion, Extremities: nontender, full range of motion Skin: Color pink, dry, no turgor, no rash, no lacerations, no abrasions, no contusions. Lymphatic: Deferred Results Laboratory and Microbiology Lab and Micro Result Laboratory Tests Test 01/24/25 12:24 White Blood Count 6.4 K/uL (4.8-10.8) Red Blood Count 2.99 MIL/uL (4.50-6.20) L Hemoglobin 9.6 g/dL (14.0-18.0) L Hematocrit 28.4 % (42-54) L Mean Corpuscular Volume 95.0 fL (79-99) Mean Corpuscular Hemoglobin 32.1 pg (27.0-33.0) Mean Corpuscular Hemoglobin Concent 33.8 g/dL (32.0-36.0) Red Cell Distribution Width 13.7 % (11.0-15.5) Platelet Count 134 K/uL (130-400) Mean Platelet Volume 9.6 fL (7.5-10.5) Immature Granulocyte % (Auto) 0.2 % (0-1) Neutrophils (%) (Auto) 56.6 % (40.0-77.0) Lymphocytes (%) (Auto) 28.3 % (21.0-51.0) Monocytes (%) (Auto) 6.1 % (3.0-13.0) Eosinophils (%) (Auto) 8.5 % (0.0-8.0) H Basophils (%) (Auto) 0.3 % (0.0-5.0) Neutrophils # (Auto) 3.6 K/uL (1.8-7.7) Lymphocytes # (Auto) 1.8 K/uL (1.0-4.8) Monocytes # (Auto) 0.4 K/uL (0.1-1.0) Eosinophils # (Auto) 0.54 K/uL (0.00-0.70) Basophils # (Auto) 0.02 K/uL (0.00-0.20) Absolute Immature Granulocyte (auto 0.01 K/uL (0-1) Nucleated Red Blood Cells 0.0 % (0.0-0.19) Prothrombin Time 11.2 SEC (9.6-11.6) Prothromb Time International Ratio 1.06 (0.85-1.15) Activated Partial Thromboplast Time 28.8 SEC (26.3-35.5) Sodium Level 142 mmol/L (136-145) Potassium Level 4.9 mmol/L (3.5-5.1) Chloride Level 113 mmol/L (101-111) H Carbon Dioxide Level 23 mmol/L (21-32) Blood Urea Nitrogen 36 mg/dL (7-18) H Creatinine 1.3 mg/dL (0.5-1.3) Glomerular Filtration Rate Calc 59 mL/min (>90) Random Glucose 89 mg/dL (70-105) Total Calcium 8.1 mg/dL (8.5-10.1) L Labs Reviewed?: Yes MDM MDM: Year old male with a past medical history of liver cirrhosis presents to the emergency department for evaluation of ascites. Patient reports monthly paracentesis and believes he may need a paracentesis performed today. He reports significant amount of abdominal distention. Denies any shortness of breath or any other symptoms at this time. Basic labs obtained which are stab le. IR consulted and agrees for paracentesis. Patient had paracentesis performed and was observed shortly in the emergency department with no complications. Patient discharged home Differential diagnosis: Fluid overload pulmonary edema, ascites There are no social concerns with this patient. Prescription drug management Prescriptions will include: None Medical management and examination interpretation discussions were had by me with other qualified healthcare professionals as indicated for the patient's care. ED Course Orders Procedure Category Date Status Time Cbc With Differential LAB 01/24/25 Complete 12:15 Basic Metabolic Panel LAB 01/24/25 Complete 12:15 Pt And Ptt LAB 01/24/25 Complete 12:15 Ct Abdomen/Pelvis W/O CT 01/24/25 Resulted Contrast 12:15 Us Abdominal US 01/24/25 Resulted Paracentesis Ir 14:44 Albumin Human 25% PHA 01/24/25 Complete (Albutein) 15:32 Vital Signs Date Time Temp Pulse Resp B/P (MAP) Pulse Ox O2 Delivery O2 Flow Rate FiO2 01/24/25 17:15 98.4 68 18 134/64 98 Room Air* 0 21 01/24/25 14:33 65 18 152/73 100 Room Air* 0 21 01/24/25 12:58 59 18 154/60 100 Room Air* 0 21 01/24/25 11:40 98.2 68 18 141/76 97 DX & DISP Disposition: Discharge Departure Impression: Primary Impression: Abdominal ascites Additional Impression: S/P abdominal paracentesis Condition: Stable Referrals: EDISON ENGLISH MD (PCP) I have reviewed the case, and I agree with, Diagnosis and Plan I performed the substantive portion of the visit. I have reviewed and personally made and approve the management plan that is documented in the note by myself or the MARY. I acknowledge for responsibility for the patient's management plan. [place] ENGL[place] PAC Jan 24, 2025 17:13
[2025-01-24 17:15] VITALS: BP 134/64; PULSE 68; RESP 18; TEMP 98.4; O2SAT 98
--- NOTE | 2025-01-25 09:14 | HMCIMG ---
US ABDOMINAL PARACENTESIS IR REASON: paracentisis Performed by Dr. Anthony Cheatham PGY-[address] Sanchez TECHNIQUE: Paracentesis was performed with ultrasound guidance. The puncture site was selected in the Right lower quadrant and overlying skin prepped and draped in a sterile fashion. 1% Xylocaine infiltration was performed. Catheter was placed in the fluid using trocar technique. 12 were removed. Fluid sample was submitted for laboratory evaluation. The patient showed no evidence of complication during the procedure. Patient tolerated the procedure well IMPRESSION: 1. Ultrasound-guided paracentesis.
== END 2025-01-24 17:20 | disposition home or self-care (01) ==
LOC: EDH 11:37
DX: R18.8 Other ascites (principal); I10 Essential (primary) hypertension; Z79.899 Other long term (current) drug therapy
CPT/HCPCS: 49083; 99285; 74176; 96365; 80048; 85025; 85610; 85730; 36415; P9046; C1729

== ENCOUNTER 2025-02-06 11:20 | Emergency (ER) | payer MEDICARE ==
[~2025-02-06] VITALS: Ht 170.2 cm; Wt 81.6 kg
--- NOTE | 2025-02-06 11:34 | ERN ---
ED Note History of Present Illness Stated Complaint: PARECENTESIS Chief Complaint: Abdominal Pain Time Seen by MD: 11:25 Dictation: PATIENT IS A 69-YEAR-OLD MALE WITH A HISTORY OF KNOWN CIRRHOSIS OF THE LIVER WITH A ASCITES. HE IS HAVING SOME ABDOMINAL DISTENTION WITH MILD SOB FOR THE LAST SEVERAL DAYS, HAS REQUESTING EMERGENT PARACENTESIS. NO FEVER NO CHILLS NO NAUSEA VOMITING. NO CHEST PAIN. PATIENT STATES HE HAS NOT SPOKEN TO HIS PRIMARY CARE DOCTOR REGARDING BEING SCHEDULED OUTPATIENT Allergies: Coded Allergies: No Known Drug Allergies (Unverified Allergy, Unknown, 09/27/23) Home Meds Active Scripts Ciprofloxacin HCl (Cipro) 250 Mg Tablet, 1 TAB PO BID for 7 Days, #14 TAB 0 Refills Prov:REBECCA GARCIA MD 11/22/24 Reported Medications Hum Insulin NPH/Reg Insulin Hm (Humulin 70/30) 100 Unit/Ml (70-30) Inj, 20 UNIT SQ BID, ML 09/28/23 Fenofibrate (Fenofibrate) 160 Mg Tablet, 160 MG PO DAILY, TAB 09/28/23 Furosemide (Furosemide) 20 Mg Tablet, 20 MG PO DAILY, TAB 09/28/23 Atorvastatin Calcium (Atorvastatin Calcium) 10 Mg Tablet, 10 MG PO HS, TAB 09/28/23 Past Medical History Past Medical History: Hypertension, Liver Disease, Other Additional Past Medical Hx: LIVER CIRHOSIS Surgical History: Other, None Surgical History Other: SHOULDER SX RN Note Reviewed/Agreed w/PFSH: Yes Review of System Dictation CONSTITUTIONAL: NEGATIVE EXCEPT FOR HPI HEAD/FACE: NEGATIVE EXCEPT FOR HPI EENT: NEGATIVE EXCEPT FOR HPI RESPIRATORY: NEGATIVE EXCEPT FOR HPI GASTROINTESTINAL/ABDOMINAL: NEGATIVE EXCEPT FOR HPI ABDOMINAL DISTENTION ASCITES GENITOURINARY: NEGATIVE EXCEPT FOR HPI MUSCULOSKELETAL: NEGATIVE EXCEPT FOR HPI INTEGUMENTARY: NEGATIVE EXCEPT FOR HPI NEUROLOGICAL/PSYCH: NEGATIVE EXCEPT FOR HPI HEMATOLOGIC/LYMPHATIC: NEGATIVE EXCEPT FOR HPI ALL SYSTEMS NEGATIVE, EXCEPT NOTED ABOVE. 13 POINT REVIEW OF SYSTEMS ASSESSED AND ALL NEGATIVE EXCEPT FOR ABOVE. Initial Vital Sign VS Vital Signs Date Time Temp Pulse Resp B/P (MAP) Pulse Ox O2 Delivery O2 Flow Rate FiO2 02/06/25 11:22 97.5 65 16 151/66 100 Room Air 0 02/06/25 16:00 21 Physical Exam Dictation VITAL SIGNS REVIEWED GENERAL APPEARANCE: ALERT, ORIENTED X 3, MILD ACUTE DISTRESS, WELL DEVELOPED, NOURISHED. HEAD AND FACE: NON-TRAUMATIC. EYES: PERRL, PINK CONJUNCTIVAS, EYELID NO TRAUMA, ANTERIOR CHAMBER WITH ARCUS SENILIS. EARS: PINNAS INTACT AND NO SIGNS OF TRAUMA OR ERYTHEMA EAR CANALS CLEAR AND NO DISCHARGE TM NO ERYTHEMA NOSE: NO DISCHARGE, NO BLEEDING. OROPHARYNX: MOUTH NORMAL, TONGUE PINK, PHARYNX CLEAR,NO ERYTHEMA, TONSILS NO EXUDATES, NO ABSCESSES NOTED, MUCOUS MEMBRANE MOIST NECK: SUPPLE, NON-TENDER, NO THYROMEGALY, NO MASSES, NO JVD, NO BRUITS BREAST:DEFERRED CHEST:NO TENDERNESS, NO CREPITUS, NO PARADOXICAL MOVEMENT, NO RETRACTIONS LUNGS:CLEAR, WELL-VENTILATED, SYMMETRIC, NO RALES, NO WHEEZING, NO RHONCHI, NO STRIDOR, GOOD BREATH SOUNDS BILATERALLY HEART: REGULAR RATE, REGULAR RHYTHM, NO MURMUR, NO GALLOPS VASCULAR: NO PERIPHERAL EDEMA, ABDOMEN: SOFT, POSITIVE BOWEL SOUNDS, ABDOMEN MILDLY DISTENDED, WITH A ASCITES AND POSITIVE WAVE SIGN. ABDOMEN NOT TENSE RECTAL: DEFERRED GENITAL: DEFERRED NEUROLOGICAL: NORMAL SPEECH, MOTOR FUNCTION INTACT, SENSORY FUNCTION INTACT MUSCULOSKELETAL: NECK NONTENDER, FULL RANGE OF MOTION, BACK NONTENDER, FULL RANGE OF MOTION, EXTREMITIES: NONTENDER, FULL RANGE OF MOTION SKIN: COLOR PINK, DRY, NO TURGOR, NO RASH, NO LACERATIONS, NO ABRASIONS, NO CONTUSIONS. LYMPHATIC: DEFERRED Results (Laboratory/Radiology) Laboratory/Radiology Laboratory Tests Test 02/06/25 11:48 White Blood Count 5.5 K/uL (4.8-10.8) Red Blood Count 3.01 MIL/uL (4.50-6.20) L Hemoglobin 9.6 g/dL (14.0-18.0) L Hematocrit 28.8 % (42-54) L Mean Corpuscular Volume 95.7 fL (79-99) Mean Corpuscular Hemoglobin 31.9 pg (27.0-33.0) Mean Corpuscular Hemoglobin Concent 33.3 g/dL (32.0-36.0) Red Cell Distribution Width 13.8 % (11.0-15.5) Platelet Count 127 K/uL (130-400) L Mean Platelet Volume 9.6 fL (7.5-10.5) Immature Granulocyte % (Auto) 0.4 % (0-1) Neutrophils (%) (Auto) 64.8 % (40.0-77.0) Lymphocytes (%) (Auto) 21.9 % (21.0-51.0) Monocytes (%) (Auto) 6.8 % (3.0-13.0) Eosinophils (%) (Auto) 5.7 % (0.0-8.0) Basophils (%) (Auto) 0.4 % (0.0-5.0) Neutrophils # (Auto) 3.6 K/uL (1.8-7.7) Lymphocytes # (Auto) 1.2 K/uL (1.0-4.8) Monocytes # (Auto) 0.4 K/uL (0.1-1.0) Eosinophils # (Auto) 0.31 K/uL (0.00-0.70) Basophils # (Auto) 0.02 K/uL (0.00-0.20) Absolute Immature Granulocyte (auto 0.02 K/uL (0-1) Nucleated Red Blood Cells 0.0 % (0.0-0.19) Prothrombin Time 10.9 SEC (9.6-11.6) Prothromb Time International Ratio 1.03 (0.85-1.15) Activated Partial Thromboplast Time 29.1 SEC (26.3-35.5) Sodium Level 140 mmol/L (136-145) Potassium Level 4.6 mmol/L (3.5-5.1) Chloride Level 110 mmol/L (101-111) Carbon Dioxide Level 22 mmol/L (21-32) Blood Urea Nitrogen 40 mg/dL (7-18) H Creatinine 1.3 mg/dL (0.5-1.3) Glomerular Filtration Rate Calc 59 mL/min (>90) Random Glucose 87 mg/dL (70-105) Total Calcium 8.2 mg/dL (8.5-10.1) L Total Bilirubin 0.9 mg/dL (0.2-1.0) Aspartate Amino Transf (AST/SGOT) 44 U/L (10-37) H Alanine Aminotransferase (ALT/SGPT) 28 U/L (12-78) Alkaline Phosphatase 194 U/L (50-136) H Ammonia 20 umol/L (11-32) Total Protein 5.8 g/dL (6.0-8.3) L Albumin 2.5 g/dL (3.5-5.0) L Labs Reviewed?: Yes ED Course ED Course Orders Procedure Category Date Status Time Ammonia LAB 02/06/25 Complete 11:32 Pt And Ptt LAB 02/06/25 Complete 11:32 Cbc With Differential LAB 02/06/25 Complete 11:32 Comprehensive LAB 02/06/25 Complete Metabolic Panel 11:32 Us Abdominal US 02/06/25 Taken Paracentesis Ir 14:37 Albumin Human 25% PHA 02/06/25 Complete (Albutein) 14:53 Current Medications Medications (Trade) Dose Ordered Sig/Dylan Route PRN Reason Start Time Stop Time Status Last Admin Dose Admin Albumin Human 200 ml @ As Directed STK-MED ONCE IV 02/06/25 14:53 02/06/25 14:53 DC 02/06/25 16:31 Vital Signs Date Time Temp Pulse Resp B/P (MAP) Pulse Ox O2 Delivery O2 Flow Rate FiO2 02/06/25 16:00 97.5 72 20 137/68 97 Room Air* 0 21 02/06/25 11:22 97.5 65 16 151/66 100 Room Air 0 1740/PATIENT DISCHARGED HOME RETURN TO THE EMERGENCY ROOM IN THE MORNING AT 07:00 FOR PARACENTESIS. Medical Decision Making MDM MDM: DIFFERENTIAL DIAGNOSIS: ELECTROLYTE IMBALANCE/DEHYDRATION/HYPERAMMONEMIA/ ABDOMINAL DISTENTION/ANEMIA RATIONALE: TESTS CONSIDERED AND ORDERED SECONDARY TO SHARED DECISION MAKING INCLUDE: LABS PREVIOUS OUTSIDE RECORDS REVIEWED: OLD ER VISITS. RISK OF COMPLICATION AND/OR MORBIDITY OR MORTALITY OF PATIENT MANAGEMENT: NONE MEDICATIONS-PER MEDICATION RECONCILIATION NEED FOR HOSPITALIZATION: PATIENT DOES NOT MEET CRITERIA FOR HOSPITALIZATION. NONE NEED FOR EMERGENCY MAJOR/MINOR SURGERY: NO THERE ARE NO SOCIAL CONCERNS WITH THIS PATIENT. PRESCRIPTION DRUG MANAGEMENT PATIENT WILL BE INSTRUCTED TO RETURN TO THE EMERGENCY ROOM IN THE MORNING FOR PARACENTESIS PRESCRIPTIONS WILL INCLUDE SYMPTOMATIC CARE PATIENT'S PRIOR EXTERNAL MEDICAL RECORDS FROM OTHER ER VISITS WERE REVIEWED BY ME INDICATED. PRIOR TESTING AND RESULTS FROM PREVIOUS VISITS WERE REVIEWED. PRIOR TESTS WERE TAKEN INTO ACCOUNT WITH MEDICAL DECISION MAKING AND RESOURCE UTILIZATION, INDEPENDENT HISTORIAN/HISTORIANS WERE USED TO OBTAIN COMPLETE MEDICAL HISTORY. I INDEPENDENTLY INTERPRETED THE TEST THAT WERE PERFORMED, RESULTS WERE REVIEWED BY ME AND CONSIDERED FINDINGS ON RADIOLOGY IF ORDERED. MEDICAL MANAGEMENT AND EXAMINATION INTERPRETATION DISCUSSIONS WERE HAD BY ME WITH OTHER QUALIFIED HEALTHCARE PROFESSIONALS INDICATED FOR THE PATIENT'S CARE. DX & DISP Disposition: Discharge Departure Impression: Primary Impression: Abdominal ascites Additional Impressions: Liver cirrhosis, Elevated LFTs, Stage 3a chronic kidney disease, Hypoalbuminemia Condition: Stable Referrals: EDISON ENGLISH MD (PCP) Time of Disposition: 17:41 I have reviewed the case, and I agree with, Diagnosis and Plan DEWAYNE MENDOSA TUBE FILLER Feb 06, 2025 11:34
[2025-02-06 12:05] LABS: IMMATURE GRANULOCYTE ABSOLUTE 0.02 K/uL (0-1); NUCLEATED RED BLOOD CELLS 0.0 % (0.0-0.19); PLATELET COUNT (AUTO) 127 K/uL (130-400); RED BLOOD CELL COUNT(AUTO) 3.01 MIL/uL (4.50-6.20); RED CELL DISTRIBUTION WIDTH 13.8 % (11.0-15.5); WHITE BLOOD COUNT (AUTO) 5.5 K/uL (4.8-10.8)
[2025-02-06 12:13] LABS: CREATININE 1.3 mg/dL (0.5-1.3); GLOMERULAR FILTR. RATE CALC 59.0 mL/min (>90); GLUCOSE,RANDOM 87.0 mg/dL (70-105); SODIUM SERUM 140.0 mmol/L (136-145); UREA NITROGEN, BLOOD 40.0 mg/dL (7-18)
[2025-02-06 12:18] LABS: ASPARTATE AMINOTRANSFERASE 44.0 U/L (10-37); TOTAL PROTEIN, SERUM 5.8 g/dL (6.0-8.3)
[2025-02-06 12:19] LABS: INR 1.03 (0.85-1.15)
--- NOTE | 2025-02-06 15:00 | NUR ---
PT LEFT TO IR AT THIS TIME
--- NOTE | 2025-02-06 16:15 | NUR ---
ULTRASOUND GUIDED PARACENTESIS PROCEDURE PERFORMED BY DR. JUNIE PHILLIPS. PUNCTURE SITE LLQ AND PATIENT TOLERATED PROCEDURE WELL. TOTAL REMOVED 11.7 LITERS OF ASCITES FLUID. END OF PROCEDURE AT 1605. CATHETER REMOVED AND DRESSING APPLIED. NO BLEEDING NOTED. REPORT GIVEN TO SCOOBY VELIZ AND PATIENT TRANSPORTED TO ED VIA WHEELCHAIR. AAO X3 WITH NO C/O PAIN.
[2025-02-06] MEDS: ALBUMIN HUMAN 25% 200 ML IV ONE (16:31)
[2025-02-06 17:30] VITALS: BP 132/69; PULSE 63; RESP 20; TEMP 98.1; O2SAT 97
--- NOTE | 2025-02-07 07:58 | HMCIMG ---
US ABDOMINAL PARACENTESIS IR REASON: ASCITES TECHNIQUE: Paracentesis was performed with ultrasound guidance. The puncture site was selected in the Right lower quadrant and overlying skin prepped and draped in a sterile fashion. 1% Xylocaine infiltration was performed. Catheter was placed in the fluid using trocar technique. 11.7 L were removed. Fluid sample was submitted for laboratory evaluation. The patient showed no evidence of complication during the procedure. Patient tolerated procedure well IMPRESSION: 1. Ultrasound-guided paracentesis.
== END 2025-02-06 18:04 | disposition home or self-care (01) ==
LOC: EDH 11:20
DX: R18.8 Other ascites (principal); K74.60 Unspecified cirrhosis of liver; I12.9 Hypertensive chronic kidney disease with stage 1 through stage 4 chronic kidney disease, or unspecified chronic kidney disease; N18.31 Chronic kidney disease, stage 3a; E88.09 Other disorders of plasma-protein metabolism, not elsewhere classified; Z79.899 Other long term (current) drug therapy
CPT/HCPCS: 49083; 99285; 96365; 80053; 82140; 85025; 85610; 85730; 36415; P9046; C1729

== ENCOUNTER → 2025-02-20 | Emergency (ER) | payer MEDICARE ==
[~2025-02-20] VITALS: Ht 170.2 cm; Wt 81.6 kg
[2025-02-20 08:09] VITALS: BP 178/67; PULSE 63; RESP 16; TEMP 98.2
--- NOTE | 2025-02-20 08:23 | ERN ---
General Chief Complaint: Abdominal Pain Stated Complaint: PARACENTESIS Time Seen by MD: 08:12 Source: patient History of Present Illness Initial Comments Patient is a 69-year-old male with a history of liver cirrhosis coming in to has a paracentesis. Per patient he comes every 15 days to get a paracentesis. He states he has been short of breath. Allergies: Coded Allergies: No Known Drug Allergies (Unverified Allergy, Unknown, 09/27/23) Home Meds Active Scripts Ciprofloxacin HCl (Cipro) 250 Mg Tablet, 1 TAB PO BID for 7 Days, #14 TAB 0 Refills Prov:REBECCA GARCIA MD 11/22/24 Reported Medications Hum Insulin NPH/Reg Insulin Hm (Humulin 70/30) 100 Unit/Ml (70-30) Inj, 20 UNIT SQ BID, ML 09/28/23 Fenofibrate (Fenofibrate) 160 Mg Tablet, 160 MG PO DAILY, TAB 09/28/23 Furosemide (Furosemide) 20 Mg Tablet, 20 MG PO DAILY, TAB 09/28/23 Atorvastatin Calcium (Atorvastatin Calcium) 10 Mg Tablet, 10 MG PO HS, TAB 09/28/23 Past Medical History Past Medical History: Hypertension, Liver Disease, Other Medical History Other: LIVER CIRHOSIS Past Surgical History: Other, None Surgical History Other: SHOULDER SX ROS Dictation CONSTITUTIONAL: No chills, no fever, no weakness, no diaphoresis, no malaise. HEAD/FACE: No signs of trauma. EENT: No eye pain, no blurred vision, no tearing, no double vision, no ear pain, no ear discharge, no nose pain, no nasal congestion, no throat pain, no throat swelling, no mouth pain. RESPIRATORY: No cough, no orthopnea, no SOB, no stridor, no wheezing. CARDIOVASCULAR: No chest pain, no edema, no palpitations, no syncope. GASTROINTESTINAL/ABDOMINAL: No abdominal pain, no constipation, no diarrhea, no nausea, no vomiting. GENITOURINARY: No abnormal discharge, no dysuria, no frequent urination, no hematuria. No complaints of pain in the genitals. MUSCULOSKELETAL: No back pain, no gout, no joint pain, no joint swelling, no muscle pain, no muscle stiffness, no neck pain. INTEGUMENTARY: No change in color, no change in hair/nails, no dryness, no lesion, no lumps, no rash. NEUROLOGICAL/PSYCH: No anxiety, not depressed, no emotional problem, no headache, no numbness, no pre-existing deficit, no history of seizures, no tremors, no weakness. HEMATOLOGIC/LYMPHATIC: Not anemic, no history of blood clots, no apparent bleeding, no bruising, glands not swollen. All Systems Negative, Except as Noted. Physical Exam Physical Exam Dictation VITAL SIGNS: Reviewed. GENERAL APPEARANCE: Alert, oriented x3, no acute distress, obese. HEAD AND FACE: Non-traumatic. EYES: PERRL, pink conjunctivas, eyelid no trauma, anterior chamber clear. EARS: Pinnas intact and no signs of trauma or erythema. Ear canals clear and no discharge. TMs no erythema. NOSE: No discharge, no bleeding. OROPHARYNX: Mouth normal, teeth no caries, tongue pink. Pharynx clear, no erythema. Tonsils no exudates, no abscesses noted. Mucous membrane moist. NECK: Supple, non-tender, no thyromegaly, no masses, no JVD, no bruits. BREAST: Deferred. CHEST: No tenderness, no crepitus, no paradoxical movement, no retractions. LUNGS: Clear, well-ventilated, symmetric, no rales, no wheezing, no rhonchi, no stridor, good breath sounds bilaterally. HEART: Regular rate, regular rhythm, no murmur, no gallops. VASCULAR: No peripheral edema. ABDOMEN: Soft, positive bowel sounds, distended, no guarding, nontender, no rebound, no masses no hepatomegaly, no splenomegaly, no Roque's sign, no hernias. RECTAL: Deferred. GENITAL: Deferred. NEUROLOGICAL: Normal speech, gross motor function intact, gross sensory function intact. MUSCULOSKELETAL: Neck nontender, full range of motion, back nontender, full range of motion. EXTREMITIES: Nontender, full range of motion. SKIN: Color pink, dry, no turgor, no rash, no lacerations, no abrasions, no contusions. LYMPHATICS: Deferred. Results Laboratory and Microbiology Labs Reviewed?: Yes MDM MDM: Differential diagnosis: Abdominal distention, history of liver cirrhosis, status post paracentesis, Rationale: Tests considered and ordered secondary to shared decision making include: Previous outside records reviewed: Old ER visits. Risk of complication and/or morbidity or mortality of patient management: None Medications-Per medication reconciliation Need for hospitalization: Patient does not meet criteria for hospitalization. Need for emergency major/minor surgery: No There are no social concerns with this patient. Patient is a 69-year-old gentleman coming in to has a paracentesis. Patient is not in respiratory distress. States he is here for a paracentesis. I did educate him on spacing out the paracentesis much as possible until he becomes symptomatic. Also advised him to follow up with a negotiator sales so they can arrange for outpatient paracentesis. Patient has been laying comfortably in stretcher we will be discharged in stable condition with guidance as to proper follow up per ED Course Vital Signs Date Time Temp Pulse Resp B/P (MAP) Pulse Ox O2 Delivery O2 Flow Rate FiO2 02/20/25 08:09 98.2 63 16 178/67 100 Room Air 0 DX & DISP Disposition: Discharge Departure Impression: Primary Impression: Abdominal ascites Additional Impression: Liver cirrhosis Condition: Stable Additional Instructions: FOLLOW-UP WITH PRIMARY CARE PROVIDER IN 1 TO 2 DAYS. TAKE MEDICATIONS DIRECTED HERE IN THE EMERGENCY ROOM. OKAY TO CONTINUE HOME MEDICATIONS UNLESS OTHERWISE DISCUSSED DURING YOUR VISIT IN THE EMERGENCY ROOM TODAY. RETURN TO YOUR NEAREST EMERGENCY ROOM IF SYMPTOMS WORSEN OR IF THERE IS NO IMPROVEMENT. CALL 911 IF YOU NEED IMMEDIATE ASSISTANCE. TAKE TYLENOL [id number] NEEDED AND IF NO CONTRAINDICATIONS ARE PRESENT. INCREASE ORAL HYDRATION. A WOUND CULTURE OR URINE CULTURE WAS ORDERED HERE IN THE EMERGENCY ROOM DEPARTMENT PLEASE FOLLOW-UP WITH PRIMARY CARE PROVIDER AND ADVISE THEM TO GET REPORTS FROM OUR FACILITY. IF YOU HAD ANY PAMELA WRAP/SPLINTS THAT WERE APPLIED HERE, PLEASE DO NOT REMOVE THEM UNTIL YOU SEE YOUR PRIMARY CARE OR SPECIALTY. Referrals: Referrals: EDISON ENGLISH MD (PCP) RUI HAMMER MD Time of Disposition: 08:23 REBECCA GARCIA MD Feb 20, 2025 08:23
--- NOTE | 2025-02-20 08:52 | NUR ---
PATIENT WAS DC'D BEFORE GETTING INTO ROOM
== END ==
LOC: EDH 08:06
DX: R18.8 Other ascites (principal); K74.60 Unspecified cirrhosis of liver; I10 Essential (primary) hypertension; Z79.899 Other long term (current) drug therapy
CPT/HCPCS: 99282

== ENCOUNTER 2025-03-29 08:32 | Emergency (ER) | payer MEDICARE ==
[~2025-03-29] VITALS: Ht 167.6 cm; Wt 88.0 kg
[~2025-03-29 08:32] MED LIST changes: -CIPR-279 PO; +FOLI0.8T53 PO; -FURO20TA4 PO; +FURO40TA5 PO; +LACT20PA7 PO; +RIFA550T PO
[2025-03-29 08:34] VITALS: TEMP 97.5
--- NOTE | 2025-03-29 08:53 | ERN ---
General Chief Complaint: Abdominal Pain Stated Complaint: ASCITES Time Seen by MD: 08:37 Source: patient History of Present Illness Initial Comments The patient is a 69 year old male who came to the ER because of abdominal distention and possible paracentesis. The patient has liver cirrhosis and gets paracentesis done for removal of the ascitic fluid Timing/Duration: constant Allergies: Coded Allergies: No Known Drug Allergies (Unverified Allergy, Unknown, 09/27/23) Home Meds Active Scripts Lactulose (Lactulose) 20 Gram Packet, 20 GM PO BID for 30 Days, #60 PKT 2 Refills Prov:JACQUELINE MCLAUGHLIN MD 03/10/25 Rifaximin (Xifaxan) 550 Mg Tablet, 550 MG PO Q12H for 30 Days, #60 TAB 2 Refills Prov:JACQUELINE MCLAUGHLIN MD 03/10/25 Folic Acid/Vit B Complex and C (Nephro Vitamins Tablet) 0.8 Mg Tablet, 0.8 MG PO DAILY for 30 Days, #30 TAB 1 Refill Prov:JACQUELINE MCLAUGHLIN MD 03/10/25 Furosemide (Furosemide) 40 Mg Tablet, 1 TAB PO BID for 30 Days, #60 TAB 1 Refill Prov:JACQUELINE MCLAUGHLIN MD 03/01/25 Reported Medications Hum Insulin NPH/Reg Insulin Hm (Humulin 70/30) 100 Unit/Ml (70-30) Inj, 20 UNIT SQ BID, ML 09/28/23 Fenofibrate (Fenofibrate) 160 Mg Tablet, 160 MG PO DAILY, TAB 09/28/23 Atorvastatin Calcium (Atorvastatin Calcium) 10 Mg Tablet, 10 MG PO HS, TAB 09/28/23 Past Medical History Past Medical History: High Cholesterol, Hypertension, Liver Disease Medical History Other: LIVER CIRRHOSIS Past Surgical History: Other Surgical History Other: PARACENTESIS, RT SHOULDER SX Family History Family History: Negative Social History Social History: Negative Gastrointestinal/Abdominal: (+) other documentation Physical Exam Gastrointestinal: (+) distended Results Laboratory and Microbiology Lab and Micro Result Laboratory Tests Test 03/29/25 09:00 White Blood Count 5.9 K/uL (4.8-10.8) Red Blood Count 3.00 MIL/uL (4.50-6.20) L Hemoglobin 9.4 g/dL (14.0-18.0) L Hematocrit 28.7 % (42-54) L Mean Corpuscular Volume 95.7 fL (79-99) Mean Corpuscular Hemoglobin 31.3 pg (27.0-33.0) Mean Corpuscular Hemoglobin Concent 32.8 g/dL (32.0-36.0) Red Cell Distribution Width 14.7 % (11.0-15.5) Platelet Count 122 K/uL (130-400) L Mean Platelet Volume 9.3 fL (7.5-10.5) Immature Granulocyte % (Auto) 0.3 % (0-1) Neutrophils (%) (Auto) 58.8 % (40.0-77.0) Lymphocytes (%) (Auto) 20.7 % (21.0-51.0) L Monocytes (%) (Auto) 7.1 % (3.0-13.0) Eosinophils (%) (Auto) 12.8 % (0.0-8.0) H Basophils (%) (Auto) 0.3 % (0.0-5.0) Neutrophils # (Auto) 3.5 K/uL (1.8-7.7) Lymphocytes # (Auto) 1.2 K/uL (1.0-4.8) Monocytes # (Auto) 0.4 K/uL (0.1-1.0) Eosinophils # (Auto) 0.76 K/uL (0.00-0.70) H Basophils # (Auto) 0.02 K/uL (0.00-0.20) Absolute Immature Granulocyte (auto 0.02 K/uL (0-1) Nucleated Red Blood Cells 0.0 % (0.0-0.19) Prothrombin Time 10.9 SEC (9.6-11.6) Prothromb Time International Ratio 1.03 (0.85-1.15) Activated Partial Thromboplast Time 28.8 SEC (26.3-35.5) Sodium Level 142 mmol/L (136-145) Potassium Level 4.7 mmol/L (3.5-5.1) Chloride Level 115 mmol/L (101-111) H Carbon Dioxide Level 21 mmol/L (21-32) Blood Urea Nitrogen 47 mg/dL (7-18) H Creatinine 1.3 mg/dL (0.5-1.3) Glomerular Filtration Rate Calc 59 mL/min (>90) Random Glucose 82 mg/dL (70-105) Total Calcium 8.3 mg/dL (8.5-10.1) L MDM MDM: Differential diagnosis: Rationale: Tests considered and ordered secondary to shared decision making include: Previous outside records reviewed: Old ER visits. Risk of complication and/or morbidity or mortality of patient management: None Medications-Per medication reconciliation Need for hospitalization: Patient does not meet criteria for hospitalization. Need for emergency major/minor surgery: No There are no social concerns with this patient. Prescription drug management Prescriptions will include symptomatic care Patient's prior external medical records from other ER visits were reviewed by me as indicated. Prior testing and results from previous visits were reviewed. Prior tests were taken into account with medical decision making and resource utilization, independent historian/historians were used to obtain complete medical history. I independently interpreted the test that were performed, results were reviewed by me and considered findings on radiology if ordered. Medical management and examination interpretation discussions were had by me with other qualified healthcare professionals as indicated for the patient's care. ED Course Orders Procedure Category Date Status Time Cbc With Differential LAB 03/29/25 Complete 08:38 Basic Metabolic Panel LAB 03/29/25 Complete 08:38 Pt And Ptt LAB 03/29/25 Complete 08:38 Us Abdominal US 03/29/25 Resulted Paracentesis Ir 09:56 Obtain Consent For: CPOE 03/29/25 Transmitted 09:56 Iv Insertion CPOE 03/29/25 Transmitted 09:56 Albumin Human 25% PHA 03/29/25 Complete (Albutein) 10:45 Current Medications Medications (Trade) Dose Ordered Sig/Dylan Route PRN Reason Start Time Stop Time Status Last Admin Dose Admin Albumin Human 200 ml @ As Directed STK-MED ONCE IV 03/29/25 10:45 03/29/25 10:45 DC 03/29/25 11:44 Vital Signs Date Time Temp Pulse Resp B/P (MAP) Pulse Ox O2 Delivery O2 Flow Rate FiO2 03/29/25 08:34 97.5 70 18 189/87 99 Room Air 0 DX & DISP Disposition: Discharge Departure Impression: Primary Impression: Abdominal ascites Condition: Stable Referrals: EDISON ENGLISH MD (PCP) JESSICA LINDQUIST MD Mar 29, 2025 08:53 CHUCHO TYLER MD Mar 29, 2025 12:47
[2025-03-29 09:10] LABS: IMMATURE GRANULOCYTE ABSOLUTE 0.02 K/uL (0-1); NUCLEATED RED BLOOD CELLS 0.0 % (0.0-0.19); PLATELET COUNT (AUTO) 122 K/uL (130-400); RED BLOOD CELL COUNT(AUTO) 3.00 MIL/uL (4.50-6.20); RED CELL DISTRIBUTION WIDTH 14.7 % (11.0-15.5); WHITE BLOOD COUNT (AUTO) 5.9 K/uL (4.8-10.8)
[2025-03-29 09:17] LABS: CREATININE 1.3 mg/dL (0.5-1.3); GLOMERULAR FILTR. RATE CALC 59.0 mL/min (>90); GLUCOSE,RANDOM 82.0 mg/dL (70-105); SODIUM SERUM 142.0 mmol/L (136-145); UREA NITROGEN, BLOOD 47.0 mg/dL (7-18)
[2025-03-29 09:25] LABS: INR 1.03 (0.85-1.15)
--- NOTE | 2025-03-29 09:50 | NUR ---
ASSUMED CARE AT THIS TIME. PT JUST PLACED IN ED HALLWAY B1
--- NOTE | 2025-03-29 10:43 | NUR ---
ELIER ALMODOVAR FROM IR HERE TO TAKE PT TO HAVE HIS PARACENTESIS. HE WILL COMPLETE THE CONSENT.
--- NOTE | 2025-03-29 10:50 | NUR ---
PT TAKEN TO IR BY ELIER ALMODOVAR
[2025-03-29] MEDS: ALBUMIN HUMAN 25% 200 ML IV ONE (11:44)
--- NOTE | 2025-03-29 11:45 | NUR ---
PARACENTESIS BY IR PROCEDURE PERFORMED BY DR Katiuska RIVERA. PUNCTURE SITE LLQ AND TOLERATED PROCEDURE WELL. ALBUMIN 25% 50 GRAMS IV GIVEN DURING PROCEDURE. END OF PROCEDURE 1130. CATHETER REMOVED AND DRESSING APPLIED. NO BLEEDING NOTED. PATIENT TRANSPORTED TO ED HALLWAY B VIA STRETCHER AND REPORT GIVEN TO Emely CALVILLO RN. AAO X3 WITH NO C/O DISCOMFORT.
--- NOTE | 2025-03-29 12:22 | NUR ---
PT JUST NOW BROUGHT BACK BY ELIER ALMODOVAR FROM IR. 10LITERS REMOVED FROM THE PARACENTESIS IN THE LLQ AREA. THERE IS A BANDAGE THERE.
[2025-03-29 12:35] VITALS: BP 156/68; PULSE 81; RESP 17; O2SAT 98
--- NOTE | 2025-03-29 12:35 | HMCIMG ---
US ABDOMINAL PARACENTESIS IR REASON: chronic ascites TECHNIQUE: Paracentesis was performed with ultrasound guidance. The puncture site was selected in the Right lower quadrant and overlying skin prepped and draped in a sterile fashion. 1% Xylocaine infiltration was performed. Catheter was placed in the fluid using trocar technique. 10 L were removed. Fluid sample was submitted for laboratory evaluation. The patient showed no evidence of complication during the procedure. Patient tolerated procedure well. IMPRESSION: 1. Ultrasound-guided paracentesis.
== END 2025-03-29 12:57 | disposition home or self-care (01) ==
LOC: EDH 08:32
DX: R18.8 Other ascites (principal); I10 Essential (primary) hypertension; E78.00 Pure hypercholesterolemia, unspecified; Z79.899 Other long term (current) drug therapy
CPT/HCPCS: 49083; 99285; 96365; 80048; 85025; 85610; 85730; 36415; P9046; C1729